=== PATIENT | male | born 1970 | race Caucasian/White ===

== ENCOUNTER 2019-12-17 16:20 | Inpatient (IN) ==
[2019-12-17] MEDS ORDERED: MoRPHine SULFATE 4 MG/ML 1 ML CARP\\VIAL IV PRN (16:45)
[2019-12-17] MEDS ORDERED: cefTRIAXone SODIUM 2,000 MG/70 ML BAG IV STA (16:45)
[2019-12-17] MEDS ORDERED: SODIUM CHLORIDE 0.9% 1000ML 1,000 ML IV ONE ×2 (16:45→18:00)
[2019-12-17] MEDS ORDERED: MoRPHine SULFATE 4 MG/ML 1 ML CARP\\VIAL IV STA (16:45)
[2019-12-17] MEDS ORDERED: ONDANSETRON INJ 2 MG/ML 2 ML VIAL IV STA (16:45)
[2019-12-17] MEDS ORDERED: ACETAMINOPHEN 1,000 MG/100 ML VIAL IV STA (16:45)
--- NOTE | 2019-12-17 16:52 | Emergency Department Note ---
Impression & Plan Sepsis, Meningitis, Fever, Tachycardia, Headache ED Provider Note NAME: LOPEZ COTTO AGE: 49 SEX: M : 1970 ARRIVES VIA: Ambulance INFORMANT: [Patient] ED PROVIDER(S): [Prince Pacheco MD] CHIEF COMPLAINT: Fever and headache HISTORY OF PRESENT ILLNESS: The patient is a 49-year-old male who has had around 4 days of fever, headache, stiff neck, muscle and joint pain. He also has had some right ear pain and eye pain. The light hurts his eyes. There has been no sore throat, no stuffy nose. Patient rates all his pain is a 9/10. Everything worsens with movement, nothing really makes things any better. Patient states that he did have coronavirus testing already as an outpatient, this returned negative. Today, he presents the ER with worsening symptoms. The patient has had meningitis in the past. He has had a craniotomy in the past. The patient states that there has been no vomiting, no diarrhea, he has not had any urinary complaints. There has been no rash. He has not any sick contacts. The patient states that any movement really makes his symptoms markedly worse. REVIEW OF SYSTEMS: See HPI for pertinent positives and negatives. A total of ten systems were reviewed and were otherwise negative. PMHx/PSHx: See Below SOCIAL HISTORY: See Below. PHYSICAL EXAM: GENERAL: Patient is in moderate distress from pain. HEENT: No acute trauma, normocephalic atraumatic, mucous membranes moist, no nasal congestion, no scleral icterus. TMs clear bilaterally. NECK: No stridor, no adenopathy, he does have findings consistent with m eningismus, trachea is midline. LUNGS: Clear to auscultation bilaterally, no wheeze, no rhonchi, breath sounds equal. HEART: Without murmurs gallops or rubs, mildly tachycardic, regular rhythm. ABDOMEN: Soft, nontender, bowel sounds positive, no hernias, no peritonitis. EXTREMITIES: No cyanosis or edema, full range of motion of all the joints without pain or difficulty, no signs for acute trauma. NEUROLOGIC: Oriented x 3, no acute motor or sensory deficits, no focal weakness. SKIN: No rash, no jaundice, no diaphoresis. DIFFERENTIAL DIAGNOSIS: Sepsis, UTI, pneumonia, metabolic, electrolyte abnormalities, meningitis, abscess, coronavirus, cardiac sources, intracerebral event, toxicologic, neurologic, as well as other pathologies. EMERGENCY DEPARTMENT COURSE/PROCEDURES: ECG: Indication was tachycardia. The EKG shows a sinus tachycardia with a rate of 118. The QTc is 448. There is no ST elevation. No PVCs. Continuous Cardiac Monitoring: An order was placed for continuous cardiac monitoring. The monitor shows a rate of 108 with sinus tachycardia. Lumbar puncture: Risks and benefits of the procedure were discussed. Patient was placed seated on the stretcher. Lumbar landmarks were identified. Betadine was used for prep. Sterile drapes were applied. Using sterile technique, lidocaine was used to anesthetize the lumbar area. Using sterile technique, I was able to access the spinal canal. There were no complications. Fluid was collected for analysis and sent to the lab. Patient tolerated the procedure well. Critical Care Note: I have personally spent greater than 55 minutes of critical care time in the direct management of this patient. This includes bedside care, interpretation of diagnostic studies, and testing, discussion with consultants, patient, and family members, and other required patient management activities. This 55 minutes is in excess of all separately billable procedures. MEDICAL DECISION MAKING: There is a significant leukocytosis at 23,000. This is certainly consistent with infection. No worrisome anemia. There was a normal platelet count. INR was slightly high at 1.2. The cause for this elevation is unclear. There was a slightly low potassium at 3.1, no kidney failure. Lactic acid level was quite high at 3.2. Procalcitonin level was also elevated. The lactic acid and procalcitonin levels suggest sepsis/infection. No concerning liver enzyme elevation. Brain CT showed no acute bleed or mass-effect, there were findings consistent with his prior craniotomy. Chest film did not show pneumonia or CHF. Influenza testing returned negative. CSF protein was elevated at 151. CSF glucose was normal. CSF gram stain showed white blood cells but no organisms. CSF culture is pending. CSF Biofire testing returned negative. CSF cell count showed a significant number of WBCs consistent with potential meningitis. A lumbar puncture was performed, the fluid was cloudy and appeared consistent with infection. The lumbar puncture was done in the seated position so a pressure test could not be run, however, based on the force of the outpouring- fluid during the LP, I do suspect a significantly elevated CSF pressure. The patient was aggressively managed given his findings. He was given IV ceftriaxone upfront. He was given IV Decadron. He was given IV saline, IV morphine and IV Zofran. After the LP, he received IV vancomycin and IV acyclovir. He received IV lactated Ringer's. The patient is feeling improved. He still has a headache though. He is still tachycardic but overall the patient feels better than when he arrived. He is technically septic. He appears to have meningitis. Hospitalization is clearly warranted. I spoke to the patient and case management. The on-call hospitalist was consulted. Past Med/Surg History Medical History (Updated 12/17/19 @ 19:25 by Prince Pacheco MD) Meningitis Surgical History H/O craniotomy Social History Preferred Language: Lao Communication Ability: Effective Battery Technician Required: No Beliefs That Will Affect Care: None Current Living Situation: Alone Other Information That Helps Us Care for You: No Feels Safe at Home: Yes Safety Concerns: Feels Safe At This Time Smoking Status: Former smoker Do You Dip or Chew Tobacco: No ; Second Hand Exposure: No ; Hx Alcohol Use: Yes Alcohol type: hard liquor Hx Substance Use: No Allergies Allergies Allergy/AdvReac Type Severity Reaction Status Date / Time tomato Allergy Severe Hives Verified 12/17/19 16:58 naproxen Allergy Unknown Unknown Verified 12/17/19 16:59 Home Meds Home Medications Medication Instructions Recorded Confirmed acetaminophen 1,000 mg PO Q6H PRN 12/17/19 12/17/19 anastrozole 1 mg PO DAILY 12/17/19 12/17/19 testosterone cypionate 200 mg IM UD 12/17/19 12/17/19 Results & Data (ED) Vital Signs Vital Signs - 24 hr 12/17/19 16:24 12/17/19 16:27 12/17/19 16:29 Temperature 38.0 C H Temperature Source Oral Pulse Rate 123 H 126 H 120 H Pulse Rate from SpO2 Sensor 121 H 124 H Respiratory Rate 19 18 22 Blood Pressure 151/79 H 151/79 H Blood Pressure Mean 105 103 Pulse Oximetry 100 99 100 Oxygen Delivery Method Room Air Sepsis Recent Fever Within 48 Hours Yes Sepsis Action Taken by Nursing No Action Required 12/17/19 16:30 12/17/19 16:31 12/17/19 16:40 Temperature Temperature Source Pulse Rate 120 H 122 H 120 H Pulse Rate from SpO2 Sensor 121 H 122 H 122 H Respiratory Rate 20 15 23 Blood Pressure 164/91 H Blood Pressure Mean 128 Pulse Oximetry 100 99 98 Oxygen Delivery Method Sepsis Recent Fever Within 48 Hours Sepsis Action Taken by Nursing 12/17/19 16:50 12/17/19 17:00 12/17/19 17:10 Temperature Temperature Source Pulse Rate 127 H 110 H 121 H Pulse Rate from SpO2 Sensor 128 H Respiratory Rate 16 15 20 Blood Pressure Blood Pressure Mean Pulse Oximetry 98 Oxygen Delivery Method Sepsis Recent Fever Within 48 Hours Sepsis Action Taken by Nursing 12/17/19 17:20 12/17/19 17:30 12/17/19 17:32 Temperature Temperature Source Pulse Rate 116 H 122 H 120 H Pulse Rate from SpO2 Sensor Respiratory Rate 20 32 H 24 Blood Pressure 183/101 H Blood Pressure Mean 122 Pulse Oximetry Oxygen Delivery Method Sepsis Recent Fever Within 48 Hours Sepsis Action Taken by Nursing 12/17/19 17:49 12/17/19 17:50 12/17/19 18:00 Temperature Temperature Source Pulse Rate 113 H 116 H Pulse Rate from SpO2 Sensor 121 H 113 H 118 H Respiratory Rate 20 22 Blood Pressure 205/111 H Blood Pressure Mean 135 Pulse Oximetry 89 L 90 91 Oxygen Delivery Method Sepsis Recent Fever Within 48 Hours Sepsis Action Taken by Nursing 12/17/19 18:01 12/17/19 18:10 12/17/19 18:20 Temperature Temperature Source Pulse Rate 125 H 127 H 123 H Pulse Rate from SpO2 Sensor 126 H 128 H 123 H Respiratory Rate 17 17 21 Blood Pressure Blood Pressure Mean Pulse Oximetry 92 94 90 Oxygen Delivery Method Sepsis Recent Fever Within 48 Hours Sepsis Action Taken by Nursing 12/17/19 18:30 12/17/19 18:31 12/17/19 18:40 Temperature Temperature Source Pulse Rate 122 H 128 H 127 H Pulse Rate from SpO2 Sensor 123 H 128 H 126 H Respiratory Rate 16 18 25 H Blood Pressure 136/81 Blood Pressure Mean 97 Pulse Oximetry 94 97 94 Oxygen Delivery Method Sepsis Recent Fever Within 48 Hours Sepsis Action Taken by Nursing 12/17/19 18:50 12/17/19 19:00 12/17/19 19:01 Temperature Temperature Source Pulse Rate 127 H 106 H 108 H Pulse Rate from SpO2 Sensor 127 H 108 H 108 H Respiratory Rate 16 14 14 Blood Pressure 148/82 H Blood Pressure Mean 117 Pulse Oximetry 96 91 Oxygen Delivery Method Sepsis Recent Fever Within 48 Hours Sepsis Action Taken by Nursing 12/17/19 19:10 12/17/19 19:20 12/17/19 19:30 Temperature Temperature Source Pulse Rate 107 H 112 H 104 H Pulse Rate from SpO2 Sensor 107 H 112 H 105 H Respiratory Rate 10 L 24 13 Blood Pressure 144/88 H Blood Pressure Mean 106 Pulse Oximetry 91 98 91 Oxygen Delivery Method Sepsis Recent Fever Within 48 Hours Sepsis Action Taken by Nursing 12/17/19 19:31 12/17/19 19:40 12/17/19 19:50 Temperature Temperature Source Pulse Rate 106 H 110 H 113 H Pulse Rate from SpO2 Sensor 106 H 110 H 113 H Respiratory Rate 17 18 24 Blood Pressure Blood Pressure Mean Pulse Oximetry 96 97 95 Oxygen Delivery Method Sepsis Recent Fever Within 48 Hours Sepsis Action Taken by Nursing 12/17/19 20:00 12/17/19 20:01 12/17/19 20:10 Temperature Temperature Source Pulse Rate 117 H 120 H 113 H Pulse Rate from SpO2 Sensor 118 H 119 H 114 H Respiratory Rate 18 20 26 H Blood Pressure 135/77 Blood Pressure Mean 97 Pulse Oximetry 90 94 92 Oxygen Delivery Method Sepsis Recent Fever Within 48 Hours Sepsis Action Taken by Nursing 12/17/19 20:20 12/17/19 20:30 12/17/19 20:31 Temperature Temperature Source Pulse Rate 108 H 103 H 108 H Pulse Rate from SpO2 Sensor 109 H 104 H 107 H Respiratory Rate 28 H 19 21 Blood Pressure 151/92 H Blood Pressure Mean 112 Pulse Oximetry 98 98 94 Oxygen Delivery Method Sepsis Recent Fever Within 48 Hours Sepsis Action Taken by Retirement Medications Current Medication List: was personally reviewed by me Laboratory Data Attestation: I reviewed the patient's lab results. Result diagrams: 12/17/19 17:04 12/17/19 18:02 Lab Results 12/17/19 12/17/19 12/17/19 Range/Units 17:04 17:04 17:04 WBC 23.73 H (4.8-10.8) K/uL RBC 6.27 H (4.7-6.1) M/uL Hgb 13.6 L (14.0-18.0) g/dL Hct 40.4 L (42-52) % MCV 64.4 L (80-100) fL MCH 21.7 L (25-34) pg MCHC 33.7 (32-36) g/dL RDW Std Deviation 37.8 (36.4-46.3) fL RDW Coeff of Isaac 16.9 H (11.5-14.5) % Plt Count 297 (130-400) K/uL Immature Gran % (Auto) 0.4 % Neut % (Auto) 89.5 % Lymph % (Auto) 2.7 % Tompkins % (Auto) 7.3 % Eos % (Auto) 0.0 % Baso % (Auto) 0.1 % Immature Gran # (Auto) 0.10 H (0.00-0.02) K/uL Neut # (Auto) 21.22 H (1.4-6.5) K/uL Lymph # (Auto) 0.65 L (1.2-3.4) K/uL Tompkins # (Auto) 1.74 H (0.11-0.59) K/uL Eos # (Auto) 0.00 (0-0.5) K/uL Baso # (Auto) 0.02 (0-0.2) K/uL Absolute Nucleated RBC 0.09 H (0-0) K/uL Nucleated RBC % (auto) 0.4 % Polychromasia 1+ Microcytosis Present PT Cancelled INR Cancelled APTT Cancelled PTT Ratio Cancelled Sodium 137 (136-145) mmol/L Potassium (3.5-5.1) mmol/L Chloride 103 (98-107) mmol/L Carbon Dioxide 23 (21-32) mmol/L Anion Gap 11.0 (3-11) BUN 12 (7-18) mg/dl Creatinine 1.13 (0.6-1.4) mg/dl Est Cr Clr Drug Dosing 72.1 ml/min Est GFR ( Amer) 88.6 Est GFR (Non-Af Amer) 76.4 BUN/Creatinine Ratio 10.7 (10-20) Glucose 144 H (70-99) mg/dl Lactate (0.4-2.0) mmol/L Calcium 9.7 (8.5-10.1) mg/dl Phosphorus Magnesium (1.8-2.4) mg/dl Total Bilirubin 2.1 H (0.2-1) mg/dl AST (15-37) U/L ALT 33 (12-78) U/L Alkaline Phosphatase 72 (45-117) U/L Total Protein 8.5 H (6.4-8.2) gm/dl Albumin 4.1 (3.4-5.0) gm/dl Globulin 4.4 H (2.5-4.0) gm/dl Albumin/Globulin Ratio 0.9 (0.9-2) Procalcitonin (0-0.5) ng/ml CSF Appearance CSF Color Xanthrochromic CSF WBC (0-5) /uL CSF RBC (0-) /uL CSF Cell Count Tube # CSF Mononuclear WBCs % % CSF Polynuclear WBCs % % CSF Chemistry Tube # CSF Glucose (40-70) mg/dl CSF Total Protein (15-45) mg/dl CSF C.neoform/gat PCR (NotDetected) CSF CMV DNA (PCR) (NotDetected) CSF Enterovirus (PCR) (NotDetected) CSF E. coli K1 (PCR) (NotDetected) CSF H. influenzae (PCR) (NotDetected) CSF HSV I (PCR) (NotDetected) CSF HSV II (PCR) (NotDetected) CSF HHV 6 (PCR) (NotDetected) CSF L.monocytogenes PCR (NotDetected) CSF N. meningitidis PCR (NotDetected) CSF Parechovirus (PCR) (NotDetected) CSF S. agalactiae (PCR) (NotDetected) CSF S. pneumoniae (PCR) (NotDetected) CSF VZV DNA (PCR) (NotDetected) Influenza Type A (PCR) (Neg) Influenza Type B (PCR) (Neg) 12/17/19 12/17/19 12/17/19 Range/Units 17:25 18:00 18:02 WBC (4.8-10.8) K/uL RBC (4.7-6.1) M/uL Hgb (14.0-18.0) g/dL Hct (42-52) % MCV (80-100) fL MCH (25-34) pg MCHC (32-36) g/dL RDW Std Deviation (36.4-46.3) fL RDW Coeff of Isaac (11.5-14.5) % Plt Count (130-400) K/uL Immature Gran % (Auto) % Neut % (Auto) % Lymph % (Auto) % Tompkins % (Auto) % Eos % (Auto) % Baso % (Auto) % Immature Gran # (Auto) (0.00-0.02) K/uL Neut # (Auto) (1.4-6.5) K/uL Lymph # (Auto) (1.2-3.4) K/uL Tompkins # (Auto) (0.11-0.59) K/uL Eos # (Auto) (0-0.5) K/uL Baso # (Auto) (0-0.2) K/uL Absolute Nucleated RBC (0-0) K/uL Nucleated RBC % (auto) % Polychromasia Microcytosis PT INR APTT PTT Ratio Sodium (136-145) mmol/L Potassium (3.5-5.1) mmol/L Chloride (98-107) mmol/L Carbon Dioxide (21-32) mmol/L Anion Gap (3-11) BUN (7-18) mg/dl Creatinine (0.6-1.4) mg/dl Est Cr Clr Drug Dosing ml/min Est GFR ( Amer) Est GFR (Non-Af Amer) BUN/Creatinine Ratio (10-20) Glucose (70-99) mg/dl Lactate 3.2 H* (0.4-2.0) mmol/L Calcium (8.5-10.1) mg/dl Phosphorus Magnesium (1.8-2.4) mg/dl Total Bilirubin (0.2-1) mg/dl AST (15-37) U/L ALT (12-78) U/L Alkaline Phosphatase (45-117) U/L Total Protein (6.4-8.2) gm/dl Albumin (3.4-5.0) gm/dl Globulin (2.5-4.0) gm/dl Albumin/Globulin Ratio (0.9-2) Procalcitonin 1.84 H (0-0.5) ng/ml CSF Appearance CSF Color Xanthrochromic CSF WBC (0-5) /uL CSF RBC (0-) /uL CSF Cell Count Tube # CSF Mononuclear WBCs % % CSF Polynuclear WBCs % % CSF Chemistry Tube # CSF Glucose (40-70) mg/dl CSF Total Protein (15-45) mg/dl CSF C.neoform/gat PCR (NotDetected) CSF CMV DNA (PCR) (NotDetected) CSF Enterovirus (PCR) (NotDetected) CSF E. coli K1 (PCR) (NotDetected) CSF H. influenzae (PCR) (NotDetected) CSF HSV I (PCR) (NotDetected) CSF HSV II (PCR) (NotDetected) CSF HHV 6 (PCR) (NotDetected) CSF L.monocytogenes PCR (NotDetected) CSF N. meningitidis PCR (NotDetected) CSF Parechovirus (PCR) (NotDetected) CSF S. agalactiae (PCR) (NotDetected) CSF S. pneumoniae (PCR) (NotDetected) CSF VZV DNA (PCR) (NotDetected) Influenza Type A (PCR) Neg for Influ A (Neg) Influenza Type B (PCR) Neg for Influ B (Neg) 12/17/19 12/17/19 12/17/19 Range/Units 18:02 18:02 18:55 WBC (4.8-10.8) K/uL RBC (4.7-6.1) M/uL Hgb (14.0-18.0) g/dL Hct (42-52) % MCV (80-100) fL MCH (25-34) pg MCHC (32-36) g/dL RDW Std Deviation (36.4-46.3) fL RDW Coeff of Isaac (11.5-14.5) % Plt Count (130-400) K/uL Immature Gran % (Auto) % Neut % (Auto) % Lymph % (Auto) % Tompkins % (Auto) % Eos % (Auto) % Baso % (Auto) % Immature Gran # (Auto) (0.00-0.02) K/uL Neut # (Auto) (1.4-6.5) K/uL Lymph # (Auto) (1.2-3.4) K/uL Tompkins # (Auto) (0.11-0.59) K/uL Eos # (Auto) (0-0.5) K/uL Baso # (Auto) (0-0.2) K/uL Absolute Nucleated RBC (0-0) K/uL Nucleated RBC % (auto) % Polychromasia Microcytosis PT 12.9 H INR 1.2 H APTT 35.1 H PTT Ratio 1.3 Sodium (136-145) mmol/L Potassium 3.1 L (3.5-5.1) mmol/L Chloride (98-107) mmol/L Carbon Dioxide (21-32) mmol/L Anion Gap (3-11) BUN (7-18) mg/dl Creatinine (0.6-1.4) mg/dl Est Cr Clr Drug Dosing ml/min Est GFR ( Amer) Est GFR (Non-Af Amer) BUN/Creatinine Ratio (10-20) Glucose (70-99) mg/dl Lactate (0.4-2.0) mmol/L Calcium (8.5-10.1) mg/dl Phosphorus Cancelled Magnesium 2.0 (1.8-2.4) mg/dl Total Bilirubin (0.2-1) mg/dl AST 14 L (15-37) U/L ALT (12-78) U/L Alkaline Phosphatase (45-117) U/L Total Protein (6.4-8.2) gm/dl Albumin (3.4-5.0) gm/dl Globulin (2.5-4.0) gm/dl Albumin/Globulin Ratio (0.9-2) Procalcitonin (0-0.5) ng/ml CSF Appearance CSF Color Xanthrochromic CSF WBC (0-5) /uL CSF RBC (0-) /uL CSF Cell Count Tube # CSF Mononuclear WBCs % % CSF Polynuclear WBCs % % CSF Chemistry Tube # 1 CSF Glucose 54 (40-70) mg/dl CSF Total Protein 151.4 H (15-45) mg/dl CSF C.neoform/gat PCR (NotDetected) CSF CMV DNA (PCR) (NotDetected) CSF Enterovirus (PCR) (NotDetected) CSF E. coli K1 (PCR) (NotDetected) CSF H. influenzae (PCR) (NotDetected) CSF HSV I (PCR) (NotDetected) CSF HSV II (PCR) (NotDetected) CSF HHV 6 (PCR) (NotDetected) CSF L.monocytogenes PCR (NotDetected) CSF N. meningitidis PCR (NotDetected) CSF Parechovirus (PCR) (NotDetected) CSF S. agalactiae (PCR) (NotDetected) CSF S. pneumoniae (PCR) (NotDetected) CSF VZV DNA (PCR) (NotDetected) Influenza Type A (PCR) (Neg) Influenza Type B (PCR) (Neg) 12/17/19 12/17/19 12/17/19 Range/Units 18:55 18:55 19:38 WBC (4.8-10.8) K/uL RBC (4.7-6.1) M/uL Hgb (14.0-18.0) g/dL Hct (42-52) % MCV (80-100) fL MCH (25-34) pg MCHC (32-36) g/dL RDW Std Deviation (36.4-46.3) fL RDW Coeff of Isaac (11.5-14.5) % Plt Count (130-400) K/uL Immature Gran % (Auto) % Neut % (Auto) % Lymph % (Auto) % Tompkins % (Auto) % Eos % (Auto) % Baso % (Auto) % Immature Gran # (Auto) (0.00-0.02) K/uL Neut # (Auto) (1.4-6.5) K/uL Lymph # (Auto) (1.2-3.4) K/uL Tompkins # (Auto) (0.11-0.59) K/uL Eos # (Auto) (0-0.5) K/uL Baso # (Auto) (0-0.2) K/uL Absolute Nucleated RBC (0-0) K/uL Nucleated RBC % (auto) % Polychromasia Microcytosis PT INR APTT PTT Ratio Sodium (136-145) mmol/L Potassium (3.5-5.1) mmol/L Chloride (98-107) mmol/L Carbon Dioxide (21-32) mmol/L Anion Gap (3-11) BUN (7-18) mg/dl Creatinine (0.6-1.4) mg/dl Est Cr Clr Drug Dosing ml/min Est GFR ( Amer) Est GFR (Non-Af Amer) BUN/Creatinine Ratio (10-20) Glucose (70-99) mg/dl Lactate 1.6 (0.4-2.0) mmol/L Calcium (8.5-10.1) mg/dl Phosphorus Magnesium (1.8-2.4) mg/dl Total Bilirubin (0.2-1) mg/dl AST (15-37) U/L ALT (12-78) U/L Alkaline Phosphatase (45-117) U/L Total Protein (6.4-8.2) gm/dl Albumin (3.4-5.0) gm/dl Globulin (2.5-4.0) gm/dl Albumin/Globulin Ratio (0.9-2) Procalcitonin (0-0.5) ng/ml CSF Appearance Cloudy CSF Color Colorless Xanthrochromic Xanthochromic CSF WBC 5819 H* (0-5) /uL CSF RBC 120 (0-) /uL CSF Cell Count Tube # 3 CSF Mononuclear WBCs % 23.0 % CSF Polynuclear WBCs % 77.0 % CSF Chemistry Tube # Cancelled CSF Glucose Cancelled (40-70) mg/dl CSF Total Protein (15-45) mg/dl CSF C.neoform/gat PCR Not Detected (NotDetected) CSF CMV DNA (PCR) Not Detected (NotDetected) CSF Enterovirus (PCR) Not Detected (NotDetected) CSF E. coli K1 (PCR) Not Detected (NotDetected) CSF H. influenzae (PCR) Not Detected (NotDetected) CSF HSV I (PCR) Not Detected (NotDetected) CSF HSV II (PCR) Not Detected (NotDetected) CSF HHV 6 (PCR) Not Detected (NotDetected) CSF L.monocytogenes PCR Not Detected (NotDetected) CSF N. meningitidis PCR Not Detected (NotDetected) CSF Parechovirus (PCR) Not Detected (NotDetected) CSF S. agalactiae (PCR) Not Detected (NotDetected) CSF S. pneumoniae (PCR) Not Detected (NotDetected) CSF VZV DNA (PCR) Not Detected (NotDetected) Influenza Type A (PCR) (Neg) Influenza Type B (PCR) (Neg) Administered Medications Acetaminophen (Tylenol) 650 mg PO Q4H PRN PRN Reason: Pain or Fever Stop: 01/16/20 21:54 Last Admin: 12/17/19 23:22 Dose: 650 mg Documented by: [id number] Lactated Ringer's (Lr) 1,000 mls @ 100 mls/hr IV .Q10H ONE Stop: 12/18/19 08:14 Last Admin: 12/17/19 22:15 Dose: 100 mls/hr Documented by: [id number] Dexamethasone 10 mg/ Syringe 2.5 mls @ 1 mls/min IV Q6H KATE Stop: 01/17/20 00:00 Last Admin: 12/17/19 23:24 Dose: 1 mls/min Documented by: [id number] Cefepime HCl 2,000 mg/ Syringe 20 mls @ 5 mls/min IV Q8 KATE; Protocol Stop: 12/27/19 21:59 Last Admin: 12/17/19 23:23 Dose: 5 mls/min Documented by: [id number] Insulin Aspart (Novolog Flexpen) 0 units SC ACHS KATE Stop: 01/16/20 20:59 Last Admin: 12/17/19 22:24 Dose: Not Given Documented by: [id number] Cosigned by: [id number] Insulin Glargine (Lantus Solostar Pen) 5 units SC BID KATE Stop: 01/16/20 20:59 Last Admin: 12/17/19 22:25 Dose: 5 units Documented by: [id number] Cosigned by: [id number] Discontinued Medications Dexamethasone Sodium Phosphate (Decadron Pf) 10 mg IV NOW STA Stop: 12/17/19 18:18 Last Admin: 12/17/19 18:26 Dose: 10 mg Documented by: [id number] Sodium Chloride (Nss 1000ml) 1,000 mls @ 999 mls/hr IV .Q1H1M ONE Stop: 12/17/19 17:45 Last Infusion: 12/17/19 19:39 Dose: 0 mls/hr Documented by: [id number] Admin: 12/17/19 17:30 Dose: 999 mls/hr Documented by: [id number] Ceftriaxone Sodium (Rocephin) 2,000 mg in 70 mls @ 140 mls/hr IV NOW STA Stop: 12/17/19 17:14 Last Infusion: 12/17/19 18:30 Dose: 0 mls/hr Documented by: [id number] Admin: 12/17/19 17:30 Dose: 140 mls/hr Documented by: [id number] Acetaminophen (Ofirmev) 1,000 mg in 100 mls @ 400 mls/hr IV NOW STA Stop: 12/17/19 16:59 Last Infusion: 12/17/19 18:30 Dose: 0 mls/hr Documented by: [id number] Admin: 12/17/19 17:30 Dose: 400 mls/hr Documented by: [id number] Sodium Chloride (Nss 1000ml) 1,000 mls @ 999 mls/hr IV .Q1H1M ONE Stop: 12/17/19 19:00 Last Infusion: 12/17/19 20:57 Dose: 0 mls/hr Documented by: [id number] Admin: 12/17/19 19:07 Dose: 999 mls/hr Documented by: [id number] Vancomycin HCl 1,750 mg/ (Sodium Chloride) 535 mls @ 200 mls/hr IV NOW STA Stop: 12/17/19 21:39 Last Infusion: 12/17/19 22:09 Dose: 0 mls/hr Documented by: [id number] Admin: 12/17/19 19:28 Dose: 200 mls/hr Documented by: [id number] Acyclovir Sodium 650 mg/ (Dextrose) 113 mls @ 100 mls/hr IV NOW STA Stop: 12/17/19 20:08 Last Infusion: 12/17/19 20:57 Dose: 0 mls/hr Documented by: [id number] Admin: 12/17/19 19:28 Dose: 100 mls/hr Documented by: [id number] Lactated Ringer's (Lr) 1,000 mls @ 999 mls/hr IV .Q1H1M STA Stop: 12/17/19 20:46 Last Infusion: 12/17/19 21:48 Dose: 0 mls/hr Documented by: [id number] Admin: 12/17/19 20:47 Dose: 999 mls/hr Documented by: [id number] Lidocaine HCl (Buffered Lidocaine 1%) Confirm Administered Dose 20 ml INFIL .STK-MED ONE Stop: 12/17/19 18:32 Last Admin: 12/17/19 18:59 Dose: 20 ml Documented by: [id number] Morphine Sulfate (Morphine Sulfate) 4 mg IV NOW STA Stop: 12/17/19 16:46 Last Admin: 12/17/19 17:30 Dose: 4 mg Documented by: [id number] Morphine Sulfate (Morphine Sulfate) 4 mg IV Q30M PRN PRN Reason: Pain Stop: 12/31/19 16:44 Last Admin: 12/17/19 18:26 Dose: 4 mg Documented by: [id number] Ondansetron HCl (Zofran) 4 mg IV NOW STA Stop: 12/17/19 16:46 Last Admin: 12/17/19 17:30 Dose: 4 mg Documented by: [id number] Potassium Chloride (Klor-Con M20) 40 meq PO NOW STA Stop: 12/17/19 19:58 Last Admin: 12/17/19 20:47 Dose: 40 meq Documented by: [id number] Imaging Data Radiologist's Impression: XR chest 1V portable CLINICAL HISTORY: SEPSIS COMPARISON STUDY: No previous studies for comparison. FINDINGS: The bones soft tissues and hemidiaphragms are normal. The ca rdiomediastinal silhouette is normal. The lungs are clear. The pulmonary vasculature is normal. IMPRESSION: Negative chest. CT head/brain wo con CT DOSE: 614.27 mGy.cm HISTORY: headache, fever TECHNIQUE: Multiaxial CT images of the head were performed without the use of intravenous contrast. A dose lowering technique was utilized adhering to the principles of ALARA. Comparison: None. Findings: The paranasal sinuses and mastoid air cells are clear. The calvarium and skull base are intact. There has been a prior right temporal craniotomy. The ventricles and sulci are within normal limits. There is no mass, hematoma, midline shift, or acute infarct. Impression: No acute intracranial abnormality. Postoperative change consistent with a right temporal craniotomy. Blood Pressure Blood Pressure Findings: Elevated blood pressure Blood Pressure Disposition: further management by hospitalist Discharge Plan Visit Data *Final* Discharge Date/Time: 12/17/19 21:26 Chief Complaint: Illness Stated Complaint: NECK & LOWER BACK PAIN, FEVER, CONGESTION ED Provider: Prince Pacheco Discharge Problem: Sepsis, Meningitis, Fever, Tachycardia, Headache Patient Disposition: Admitted As Inpatient Condition: Fair Discharge Instructions Interventions: ED Discharge Assessment Last Done: 12/17/19 21:26 Discharge Problem: Sepsis Qualifiers: Sepsis type: sepsis due to unspecified organism Sepsis acute organ dysfunction status: without acute organ dysfunction Qualified Code(s): A41.9 - Sepsis, unspecified organism Fever Qualifiers: Fever type: unspecified Qualified Code(s): R50.9 - Fever, unspecified Headache Qualifiers: Headache type: unspecified Headache chronicity pattern: acute headache Intractability: intractable Qualified Code(s): R51 - Headache
[2019-12-17 17:19] LABS: Hematocrit (blood only) 40.4 % (42-52); Hemoglobin 13.6 g/dL (14.0-18.0); Mean Corpuscular Hemoglobin 21.7 pg (25-34); Mean Corpuscular Hgb Conc 33.7 g/dL (32-36); Mean Corpuscular Volume 64.4 fL (80-100); Nucleated RBC # (auto) 0.09 K/uL (0-0); Nucleated RBC % (auto) 0.4 %; Platelet Count 297 K/uL (130-400); RDW Coefficient of Variation 16.9 % (11.5-14.5); RDW Standard Deviation 37.8 fL (36.4-46.3); Red Blood Count 6.27 M/uL (4.7-6.1); White Blood Count 23.73 K/uL (4.8-10.8)
--- NOTE | 2019-12-17 17:25 | XRay Report ---
XR chest 1V portable CLINICAL HISTORY: SEPSIS COMPARISON STUDY: No previous studies for comparison. FINDINGS: The bones soft tissues and hemidiaphragms are normal. The cardiomediastinal silhouette is n ormal. The lungs are clear. The pulmonary vasculature is normal. IMPRESSION: Negative chest. ACT 112: Negative or not required by law. The above report was generated using voice recognition software. It may contain grammatical, syntax or spelling errors. Electronically signed by: Espinoza Martinez M.D. 12/17/2019 5:24 PM
[2019-12-17 17:40] LABS: Albumin Globulin Ratio 0.9 (0.9-2); Albumin Level 4.1 gm/dl (3.4-5.0); BUN Creatinine Ratio 10.7 (10-20); Bilirubin,Total 2.1 mg/dl (0.2-1); Calcium 9.7 mg/dl (8.5-10.1); Creatinine Clr Calc Pharmacy 72.1 ml/min; Est GFR (African American) 88.6; Est GFR (Non-African American) 76.4; Globulin 4.4 gm/dl (2.5-4.0); Total Protein 8.5 gm/dl (6.4-8.2)
--- NOTE | 2019-12-17 17:48 | CT Scan Report ---
CT head/brain wo con CT DOSE: 614.27 mGy.cm HISTORY: headache, fever TECHNIQUE: Multiaxial CT images of the head were performed without the use of intravenous contrast. A dose lowering technique was utilized adhering to the principles of ALARA. Comparison: None. Findings: The paranasal sinuses and mastoid air cells are clear. The calvarium and skull base are int act. There has been a prior right temporal craniotomy. The ventricles and sulci are within normal bojorquez its. There is no mass, hematoma, midline shift, or acute infarct. Impression: No acute intracranial abnormality. Postoperative change consistent with a right temporal craniotomy. ACT 112: Negative or not required by law. The above report was generated using voice recognition software. It may contain grammatical, syntax or spelling errors. Electronically signed by: Espinoza Martinez M.D. 12/17/2019 5:47 PM
[2019-12-17 17:51] LABS: Basophils # (auto) 0.02 K/uL (0-0.2); Basophils % (auto) 0.1 %; Immature Granulocytes % (auto) 0.4 %; Lymphocytes # (auto) 0.65 K/uL (1.2-3.4); Lymphocytes % (auto) 2.7 %; Microcytosis Present; Monocytes # (auto) 1.74 K/uL (0.11-0.59); Monocytes % (auto) 7.3 %; Neutrophils # (auto) 21.22 K/uL (1.4-6.5); Neutrophils % (auto) 89.5 %; Polychromasia 1+
[2019-12-17] MEDS ORDERED: DEXAMETHASONE **PF** INJ 10 MG/ML VIAL IV STA (18:17)
[2019-12-17 18:26] LABS: INR 1.2 (0.9-1.1); Partial Thromboplastin Ratio 1.3; Partial Thromboplastin Time 35.1 Seconds (21.0-31.0); Prothrombin Time 12.9 Seconds (9.0-12.0)
[2019-12-17 18:30] LABS: Potassium 3.1 mmol/L (3.5-5.1)
[2019-12-17] MEDS ORDERED: XYLOCAINE 1%/SOD BICARB 20 ML VIAL INFIL ONE (18:31)
[2019-12-17 18:50] LABS: Influenza A virus by PCR Neg for Influ A (Neg); Influenza B virus by PCR Neg for Influ B (Neg)
[2019-12-17] MEDS ORDERED: VANCOMYCIN HCL 1,750 MG in SODIUM CHLORIDE 0.9% 500 ML IV STA (18:59)
[2019-12-17] MEDS ORDERED: ACYCLOVIR SOD 650 MG in DEXTROSE 5% 100 ML IV STA (19:01)
[2019-12-17 19:26] LABS: Total Protein CSF 151.4 mg/dl (15-45)
[2019-12-17] MEDS ORDERED: LACTATED RINGER'S 1,000 ML IV STA (19:46)
[2019-12-17] MEDS ORDERED: POTASSIUM CHLORIDE 20 MEQ TABCR PO STA (19:57)
[2019-12-17 20:06] LABS: Appearance CSF Cloudy; CSF Count Tube # 3
[2019-12-17 20:07] LABS: CSF Xanthrochromic Xanthochromic
[2019-12-17 20:08] LABS: Color CSF Colorless
[2019-12-17 20:09] LABS: Red Blood Cell CSF (A) 120 /uL (0-); Red Blood Cell CSF (B) 140 /uL (0-)
[2019-12-17 20:23] LABS: White Blood Cell CSF (A) 5819 /uL (0-5)
--- NOTE | 2019-12-17 20:36 | History & Physical Report ---
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 Check hemoglobin A1c Basal insulin, ISS BG goal [id number] while receiving Decadron until pneumococcal meningitis ruled out DVT prophylaxis per Lovenox subcu Full code Text document was generated using Reeher voice recognition software. It may contain grammatical or spelling errors. Kindly contact undersigned for clarification of any documentation item in question. History of Present Illness Chief Complaint: Headache, fever, chills Primary Care Provider: Ever Downey MD History obtained from patient and records. 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 4 days history of fever, achy headache, stiff neck muscle and joint pain symptoms. Achy right ear ache symptoms without drainage and photophobia symptoms. Patient denies sinusitis, sore throat symptoms. No chest pain, no cough symptoms. No known sick contacts, hunting activities, or tick bites. Outpatient COVID test was negative. Patient consulted ER for worsening symptoms. Patient received vancomycin, ceftriaxone, acyclovir, Decadron for DIAMOND SETTER infection. Medical History as above Recent outpatient HIV test from May 2019 was negative. Surgical History : Craniotomy, female to male top surgery (mastectomy/chest c ontouring), hysterectomy, ovarian cyst removal Family History : Hypertension Personal/Social history : Past tobacco abuse, occasional EtOH intake, currently a postgraduate student Allergies Allergy/AdvReac Type Severity Reaction Status Date / Time tomato Allergy Severe Hives Verified 12/17/19 16:58 naproxen Allergy Unknown Unknown Verified 12/17/19 16:59 Home Medications Home Medications Medication Instructions Recorded Confirmed Type acetaminophen 1,000 mg PO Q6H PRN 12/17/19 12/17/19 History anastrozole 1 mg PO DAILY 12/17/19 12/17/19 History testosterone cypionate 200 mg IM UD 12/17/19 12/17/19 History Past Med/Surg History Medical History (Updated 12/18/19 @ 00:15 by Shivam Culver MD) Meningitis Surgical History H/O craniotomy Social History Preferred Language: Bulgarian Communication Ability: Effective 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 Beliefs That Will Affect Care: None Current Living Situation: Alone Other Information That Helps Us Care for You: No Feels Safe at Home: Yes Safety Concerns: Feels Safe At This Time Smoking Status: Former smoker Do You Dip or Chew Tobacco: No ; Second Hand Exposure: No ; Hx Alcohol Use: Yes Alcohol type: hard liquor Hx Substance Use: No Review of Systems Review of Systems: As per HPI, all 10 systems reviewed, all other ROS negative Physical Exam Physical Exam: GENERAL: Slightly uncomfortable, pleasant, no respiratory distress SKIN: Normal color, warm HEENT: [place] palpebral conjunctivae, no ptosis, dry buccal mucosa AD/: Patent EAC, no discharge, intact TM NECK : Limited flexion, minimal cervical tenderness CHEST : Decreased breath sounds, no tenderness HEART : Tachycardic , no obvious murmurs ABDOMEN: Some distention, nontender EXTREMITIES : No LE swelling/tenderness, no other conspicuous deformities noted NEUROLOGIC : Coherent, no facial asymmetry, no other gross focality Results & Data Results & Data ([facility]) Vital Signs (Past 12 Hours) Vital Signs Temp Pulse Resp BP Pulse Ox 12/17/19 19:01 108 H 14 12/17/19 19:00 106 H 14 148/82 H 91 12/17/19 18:50 127 H 16 96 12/17/19 18:40 127 H 25 H 94 12/17/19 18:31 128 H 18 97 12/17/19 18:30 122 H 16 136/81 94 12/17/19 18:20 123 H 21 90 12/17/19 18:10 127 H 17 94 12/17/19 18:01 125 H 17 92 12/17/19 18:00 116 H 22 205/111 H 91 12/17/19 17:50 113 H 20 90 12/17/19 17:49 89 L 12/17/19 17:32 120 H 24 183/101 H 12/17/19 17:30 122 H 32 H 12/17/19 17:20 116 H 20 12/17/19 17:10 121 H 20 12/17/19 17:00 110 H 15 12/17/19 16:50 127 H 16 98 12/17/19 16:40 120 H 23 98 12/17/19 16:31 122 H 15 99 12/17/19 16:30 120 H 20 164/91 H 100 12/17/19 16:29 38.0 C H 120 H 22 151/79 H 100 12/17/19 16:27 126 H 18 99 12/17/19 16:24 123 H 19 151/79 H 100 Laboratory Results Laboratory Results WBC 23.73 K/uL (4.8-10.8) H 12/17/19 17:04 RBC 6.27 M/uL (4.7-6.1) H 12/17/19 17:04 Hgb 13.6 g/dL (14.0-18.0) L 12/17/19 17:04 Hct 40.4 % (42-52) L 12/17/19 17:04 MCV 64.4 fL (80-100) L 12/17/19 17:04 MCH 21.7 pg (25-34) L 12/17/19 17:04 MCHC 33.7 g/dL (32-36) 12/17/19 17:04 RDW Std Deviation 37.8 fL (36.4-46.3) 12/17/19 17:04 RDW Coeff of Isaac 16.9 % (11.5-14.5) H 12/17/19 17:04 Plt Count 297 K/uL (130-400) 12/17/19 17:04 Immature Gran % (Auto) 0.4 % 12/17/19 17:04 Neut % (Auto) 89.5 % 12/17/19 17:04 Lymph % (Auto) 2.7 % 12/17/19 17:04 Andrews % (Auto) 7.3 % 12/17/19 17:04 Eos % (Auto) 0.0 % 12/17/19 17:04 Baso % (Auto) 0.1 % 12/17/19 17:04 Immature Gran # (Auto) 0.10 K/uL (0.00-0.02) H 12/17/19 17:04 Neut # (Auto) 21.22 K/uL (1.4-6.5) H 12/17/19 17:04 Lymph # (Auto) 0.65 K/uL (1.2-3.4) L 12/17/19 17:04 Andrews # (Auto) 1.74 K/uL (0.11-0.59) H 12/17/19 17:04 Eos # (Auto) 0.00 K/uL (0-0.5) 12/17/19 17:04 Baso # (Auto) 0.02 K/uL (0-0.2) 12/17/19 17:04 Absolute Nucleated RBC 0.09 K/uL (0-0) H 12/17/19 17:04 Nucleated RBC % (auto) 0.4 % 12/17/19 17:04 Polychromasia 1+ 12/17/19 17:04 Microcytosis Present 12/17/19 17:04 PT 12.9 Seconds (9.0-12.0) H 12/17/19 18:02 INR 1.2 (0.9-1.1) H 12/17/19 18:02 APTT 35.1 Seconds (21.0-31.0) H 12/17/19 18:02 PTT Ratio 1.3 12/17/19 18:02 Sodium 137 mmol/L (136-145) 12/17/19 17:04 Potassium 3.1 mmol/L (3.5-5.1) L 12/17/19 18:02 Chloride 103 mmol/L (98-107) 12/17/19 17:04 Carbon Dioxide 23 mmol/L (21-32) 12/17/19 17:04 Anion Gap 11.0 (3-11) 12/17/19 17:04 BUN 12 mg/dl (7-18) 12/17/19 17:04 Creatinine 1.13 mg/dl (0.6-1.4) 12/17/19 17:04 Est Cr Clr Drug Dosing 72.1 ml/min 12/17/19 17:04 Est GFR ( Amer) 88.6 12/17/19 17:04 Est GFR (Non-Af Amer) 76.4 12/17/19 17:04 BUN/Creatinine Ratio 10.7 (10-20) 12/17/19 17:04 Glucose 144 mg/dl (70-99) H 12/17/19 17:04 Lactate 1.6 mmol/L (0.4-2.0) 12/17/19 19:38 Calcium 9.7 mg/dl (8.5-10.1) 12/17/19 17:04 Phosphorus Cancelled 12/17/19 18:02 Magnesium 2.0 mg/dl (1.8-2.4) 12/17/19 18:02 Total Bilirubin 2.1 mg/dl (0.2-1) H 12/17/19 17:04 AST 14 U/L (15-37) L 12/17/19 18:02 ALT 33 U/L (12-78) 12/17/19 17:04 Alkaline Phosphatase 72 U/L (45-117) 12/17/19 17:04 Total Protein 8.5 gm/dl (6.4-8.2) H 12/17/19 17:04 Albumin 4.1 gm/dl (3.4-5.0) 12/17/19 17:04 Globulin 4.4 gm/dl (2.5-4.0) H 12/17/19 17:04 Albumin/Globulin Ratio 0.9 (0.9-2) 12/17/19 17:04 Procalcitonin 1.84 ng/ml (0-0.5) H 12/17/19 18:02 CSF Appearance Cloudy 12/17/19 18:55 CSF Color Colorless 12/17/19 18:55 Xanthrochromic Xanthochromic 12/17/19 18:55 CSF WBC 5819 /uL (0-5) H* 12/17/19 18:55 CSF RBC 120 /uL (0-) 12/17/19 18:55 CSF Cell Count Tube # 3 12/17/19 18:55 CSF Mononuclear WBCs % 23.0 % 12/17/19 18:55 CSF Polynuclear WBCs % 77.0 % 12/17/19 18:55 CSF Chemistry Tube # 1 12/17/19 18:55 CSF Chemistry Tube # Cancelled 12/17/19 18:55 CSF Glucose 54 mg/dl (40-70) 12/17/19 18:55 CSF Glucose Cancelled 12/17/19 18:55 CSF Total Protein 151.4 mg/dl (15-45) H 12/17/19 18:55 Influenza Type A (PCR) Neg for Influ A (Neg) 12/17/19 18:00 Influenza Type B (PCR) Neg for Influ B (Neg) 12/17/19 18:[address] head: No acute intracranial abnormality. Postoperative change consistent with a right temporal craniotomy. Chest x-ray : Negative EKG as per my interpretation :Rate 120, sinus tachycardia, normal axis, LAE, no ischemia
[2019-12-17 20:45] LABS: Cryptococcus neoformans/ga PCR Not Detected (NotDetected); Cytomegalovirus PCR Not Detected (NotDetected); Enterovirus PCR Not Detected (NotDetected); Escherichia coli K1 PCR Not Detected (NotDetected); Haemophilius influenzae PCR Not Detected (NotDetected); Herpes Simplex Virus 1 PCR Not Detected (NotDetected); Herpes Simplex Virus 2 PCR Not Detected (NotDetected); Human Herpes Virus 6 PCR Not Detected (NotDetected); Human Parechovirus PCR Not Detected (NotDetected); Listeria monocytogenes PCR Not Detected (NotDetected); Neisseria meningitidis PCR Not Detected (NotDetected); Streptococcus agalactiae PCR Not Detected (NotDetected); Streptococcus pneumoniae PCR Not Detected (NotDetected); Varicella Zoster Virus PCR Not Detected (NotDetected)
[2019-12-17] MEDS ORDERED: CARBOHYDRATES FOR HYPOGLYCEMIA PO PRN (20:47)
[2019-12-17] MEDS ORDERED: GLUCOSE 10 TABS/TUBE PO PRN (20:47)
[2019-12-17] MEDS ORDERED: GLUCAGON FOR INJ 1 MG VIAL SQ PRN (20:47)
[2019-12-17] MEDS ORDERED: DEXTROSE 50% 50 ML SYRINGE IV PRN (20:47)
[2019-12-17] MEDS ORDERED: GLUCOSE 40% GEL 15 GM TUBE PO PRN (20:47)
[2019-12-17] MEDS ORDERED: PROMETHAZINE HCL 12.5 MG in SODIUM CHLORIDE 0.9% 50 ML IV PRN (21:55)
[2019-12-17] MEDS ORDERED: LORazepam 0.25 MG/0.5 ML VIAL IV PRN (21:55)
[2019-12-17] MEDS ORDERED: CONSULT PHARMACY STA (21:55)
[2019-12-17] MEDS ORDERED: VANCOMYCIN CONSULT ACTIVE PRN (22:00)
[2019-12-17] MEDS ORDERED: CEFEPIME CONSULT ACTIVE PRN (22:01)
[2019-12-17] MEDS ORDERED: LACTATED RINGER'S 1,000 ML IV ONE (22:15)
[2019-12-17] MEDS: INSULIN ASPART 100 UNITS/ML 3 ML PEN SC SCH (22:24)
[2019-12-17] MEDS: INSULIN GLARGINE SOLOSTAR 100 UNITS/ML 3 ML PEN SC SCH (22:25)
--- NOTE | 2019-12-17 22:32 | Pharmacy Report ---
Pharmacy Abx Dose Short Note - Date of Service December 17, 2019 - Assessment & Plan Assessment 49 year old M ordered empiric vancomycin and cefepime IV for treatment of sepsis, meningitis * ED notes report h/o of craniotomy and meningitis Plan Vancomycin * Loading dose: 1750 mg IV (27 mg/kg) x 1 in ED * Maintenance dose: 1250 mg (18.8 mg/kg) IV q12h * Goal trough level: 15 - 20 mcg/mL * Trough level ordered for 12/17 @ 1930. Note, level drawn prior to steady state due to aggressive dosing for suspected source of meningitis. Cefepime * 2000 mg IV q8h Pharmacy will continue to follow and will adjust dose/frequency as necessary. Thank you.
[2019-12-17] MEDS: ACETAMINOPHEN 325 MG TAB PO PRN (23:22)
[2019-12-17] MEDS: CEFEPIME 2,000 MG in SYRINGE 7.5 ML IV SCH (23:23)
[2019-12-17] MEDS: dexAMETHasone 10 MG in SYRINGE 0 ML IV SCH (23:24)
[2019-12-18] MEDS: MoRPHine SULFATE 4 MG/ML 1 ML CARP\\VIAL IV PRN ×2 (01:08→05:08)
[2019-12-18] MEDS: dexAMETHasone 10 MG in SYRINGE 0 ML IV SCH ×3 (05:08→17:45)
[2019-12-18] MEDS: CEFEPIME 2,000 MG in SYRINGE 7.5 ML IV SCH ×3 (05:08→22:17)
[2019-12-18 05:42] LABS: Estimated Average Glucose 91 mg/dl; Hemoglobin A1C 4.8 % (4.5-5.6)
[2019-12-18 06:08] LABS: Basophils # (auto) 0.01 K/uL (0-0.2); Basophils % (auto) 0.1 %; Hematocrit (blood only) 35.8 % (42-52); Hemoglobin 11.5 g/dL (14.0-18.0); Immature Granulocytes # (auto) 0.07 K/uL (0.00-0.02); Immature Granulocytes % (auto) 0.4 %; Lymphocytes # (auto) 0.48 K/uL (1.2-3.4); Lymphocytes % (auto) 2.9 %; Mean Corpuscular Hgb Conc 32.1 g/dL (32-36); Mean Corpuscular Volume 65.4 fL (80-100); Mean Platelet Volume 10.6 fL (7.4-10.4); Monocytes # (auto) 0.52 K/uL (0.11-0.59); Monocytes % (auto) 3.1 %; Neutrophils # (auto) 15.45 K/uL (1.4-6.5); Neutrophils % (auto) 93.5 %; Nucleated RBC # (auto) 0.06 K/uL (0-0); Nucleated RBC % (auto) 0.4 %; Platelet Count 240 K/uL (130-400); RDW Coefficient of Variation 17.3 % (11.5-14.5); Red Blood Count 5.47 M/uL (4.7-6.1); White Blood Count 16.53 K/uL (4.8-10.8)
[2019-12-18 06:26] LABS: Microcytosis Present; Polychromasia 1+
[2019-12-18] MEDS ORDERED: MAGNESIUM SULFATE / D5W 1 GM/100 ML BAG IV ONE (06:39)
[2019-12-18] MEDS ORDERED: POTASSIUM CHLORIDE 20 MEQ TABCR PO STA (06:39)
[2019-12-18 06:41] LABS: BUN Creatinine Ratio 19.4 (10-20); Calcium 8.7 mg/dl (8.5-10.1); Creatinine Clr Calc Pharmacy 104.8 ml/min; Est GFR (African American) 125.7; Est GFR (Non-African American) 108.5; Potassium 3.8 mmol/L (3.5-5.1)
[2019-12-18 07:10] LABS: Thyroid Stimulating Hormone 0.202 uIu/ml (0.300-4.500)
[2019-12-18 07:22] LABS: T4 Free Thyroxine 0.98 ng/dl (0.8-1.6)
[2019-12-18] MEDS: ANASTROZOLE 1 MG TAB PO SCH (07:57)
[2019-12-18] MEDS: OXYCODONE HCL IR 5 MG TAB (IMMEDIATE RELEASE) PO PRN ×3 (07:57→20:34)
[2019-12-18] MEDS ORDERED: VANCOMYCIN HCL 1,250 MG in SODIUM CHLORIDE 0.9% 250 ML IV SCH (08:00)
[2019-12-18] MEDS: INSULIN GLARGINE SOLOSTAR 100 UNITS/ML 3 ML PEN SC SCH ×2 (08:44→20:34)
[2019-12-18] MEDS: INSULIN ASPART 100 UNITS/ML 3 ML PEN SC SCH ×4 (08:45→20:34)
[2019-12-18] MEDS ORDERED: ENOXAPARIN INJ 30 MG/0.3 ML SYR SQ SCH (09:00)
--- NOTE | 2019-12-18 09:39 | Hospitalist Progress Note ---
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 Check hemoglobin A1c Basal insulin, ISS BG goal [id number] while receiving Decadron until pneumococcal meningitis ruled out DVT prophylaxis per Lovenox subcu Full code labs checked ROS-+ Headache, No Visual Changes, No Nausea, No Vomiting, No Fever, No Chills, No Neck Pain or Stiffness, No Chest Pain, No Palpitations, No SOB, No VELASQUEZ, No Cough, No Sputum, No Wheezing, No Abdominal Pain, No Diarrhea, No Hematemesis, No Hemoptysis, No Unexpected Weight Loss, No Flank pain, No Melena, No Hematochezia, No Frequency, No Urgency, No Burning, No Hematuria, No Rashes, No Diaphoresis. Appetite is Poor Physical Exam Gen-AAO x 3, NAD, febrile in last 24 Hrs Head-NCAT, EOMI, PERRLA, Anicteric Sclera, No Posterior Pharyngeal Erythema Neck-Supple, No JVD, No Thyromegaly, No Masses, No LAD, No Bruits Lungs-Clear to Auscultation Bilaterally, No Rales, No Rhonchi, No Wheezing, No Crepitus Chest-No S4, +S1, +S2, No S3, No Murmurs, No Rubs, No Gallops, No Ectopy Abdomen-Soft, Bowel Sounds Present, Non Tender, Non Distended, No Hepatomegaly, No Splenomegaly, No Palpable Masses, No Rebound, No Rigidity, No Guarding Musculoskeletal-Full Range of Motion Bilaterally, No CVAT Extremities-No Cyanosis, No Clubbing, No Edema Nuero-Cranial Nerves II-XII grossly intact, Motor WNL, DTRs WNL, Strength WNL, Non Focal Psych-Normal Mood Admission and Anticipated Discharge Date Admission Date: December 17, 2019 Results & Data Results & Data ([place]) Vital Signs (Past 12 Hours) Vital Signs Temp Pulse Pulse Resp BP BP Pulse Ox 12/18/19 06:34 36.7 C 108 H 18 153/90 H 95 12/18/19 04:12 99 H 12/18/19 03:58 36.7 C 101 H 19 152/89 H 96 12/17/19 21:57 36.7 C 104 H 18 157/90 H 97
[2019-12-18 12:30] LABS: Appearance Urine Clear (Clear); Bacteria Urine Automated Negative (Negative); Bilirubin Urine Negative (Negative); Blood Urine Negative (Negative); Color Urine Yellow; Epithelial Cell Urine Auto 20-30 /lpf (0-5); Glucose Urine UA Negative (Negative); Ketones Urine 3+ (Negative); Leukocyte Esterase Urine Negative (Negative); Nitrite Urine Negative (Negative); Protein Urine 1+ (Negative); RBC Urine Automated 0-4 /hpf (0-4); Specific Gravity Urine 1.027 (1.000-1.030); Urobilinogen Urine Negative (Negative)
--- NOTE | 2019-12-18 13:04 | Infectious Disease Consult ---
Date of Consultation December 18, 2019 Assessment & Plan (1) Meningitis: continue abx, steroids, follow cultures. clinically improved. wbc improved. remain concerned regarding involvement of hardware due to previous surgery, would consider eval with neurosurgery to address this. History of Present Illness Attending Physician: Figueroa Emanuel DO pt admitted with DOWD and photophobia. Has h/o cranial leak in 2016 resulting in bacteiral meningitis, was hospitalized in [place] at the time and underwent treatment with IV abx and also had crainiotomy, has retained hardware. unclear of what pathogen was found or what abx he was treated with. He has done well until recently when he developed similar symptoms, dowd, fever and photophobia. Came to ER, LP revealed wbc 5819, protein 151, no glucose done, pcr negative, culture done and pending, gram stain with many polys, no organisms. He is feeling slightly better today, denies f/c. less DOWD but still with photophobia, no neck pain. tolerating abx, currently on cefepime and vanco, also on steroids. blood cultures pending. eating and drinking, no n/v/d. no cp, sob, cough. 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 wbc 23 in ER, 16 today, creat 0.7, procalcitonin 1.8. Flu swab negative. CT head negative for acute finding. He denies any h/o head trauma in 2016 or recently. He has relocated to [place] from [place]. He denies any sick contacts, he lives alone. 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 Beliefs That Will Affect Care: None Current Living Situation: Alone Other Information That Helps Us Care for You: No Feels Safe at Home: Yes Safety Concerns: Feels Safe At This Time Smoking Status: Former smoker Do You Dip or Chew Tobacco: No ; Second Hand Exposure: No ; Hx Alcohol Use: Yes Alcohol type: hard liquor Hx Substance Use: No Review of Systems Review of Systems: All systems reviewed & are unremarkable except as noted in HPI & below Physical Exam Constitutional: WD/WN, vitals as above Eyes: PERRL, conjunctivae normal, anicteric sclerae ENMT: external ear and nose normal, oropharynx normal Neck: normal visual inspection Respiratory: normal respiratory effort, lungs clear to auscultation Cardiovascular: RRR, no murmur, no edema Gastrointestinal (Abdomen): normal bowel sounds, soft, nontender, no hepatosplenomegaly Musculoskeletal: no cyanosis or clubbing, extremities motor strength 5/5 Skin: no rashes, warm and dry Psychiatric: A+Ox3, euthymic affect Results & Data ([facility]) Vital Signs (Past 12 Hours) Vital Signs Temp Pulse Pulse Resp BP BP Pulse Ox 12/18/19 11:06 36.5 C 92 H 16 150/89 H 96 12/18/19 10:30 106 H 12/18/19 06:34 36.7 C 108 H 18 153/90 H 95 12/18/19 04:12 99 H 12/18/19 03:58 36.7 C 101 H 19 152/89 H 96 Laboratory Results Microbiology 12/17/19 18:55 Cerebral Spinal Fluid Gram Stain - Final 12/17/19 18:55 Cerebral Spinal Fluid CSF Culture - Preliminary No growth to date. PG Care Time/CCT Total # of Minutes Spent Total Time Spent with Patient: Total time spent is greater than 50% in coordination of care (as documented) at patient's floor/unit and/or counseling patient: Coding Level of Care Code 67553 Inpt Consult Level 4 Diagnoses Meningitis G03.9
--- NOTE | 2019-12-18 13:13 | Electrocardiogram Report ---
Test Reason : Blood Pressure : / mmHG Vent. Rate : 118 BPM Atrial Rate : 118 BPM P-R Int : 150 ms QRS Dur : 084 ms QT Int : 320 ms P-R-T Axes : 066 059 023 degrees QTc Int : 448 ms Sinus tachycardia Possible Left atrial enlargement Borderline ECG No previous ECGs available Confirmed by Lan Shepard ([id number]) on 12/18/2019 1:13:28 PM Referred By: REFERRED SELF Confirmed By:Lan Shepard
[2019-12-18] MEDS: VANCOMYCIN HCL 1,250 MG in SODIUM CHLORIDE 0.9% 250 ML IV SCH (16:38)
[2019-12-18] MEDS ORDERED: VANCOMYCIN TROUGH ONE ×2 (19:30→23:30)
[2019-12-19] MEDS: VANCOMYCIN HCL 1,250 MG in SODIUM CHLORIDE 0.9% 250 ML IV SCH ×4 (00:25→17:26)
[2019-12-19] MEDS: dexAMETHasone 10 MG in SYRINGE 0 ML IV SCH ×4 (00:25→17:28)
[2019-12-19] MEDS: CEFEPIME 2,000 MG in SYRINGE 7.5 ML IV SCH ×3 (05:54→21:10)
[2019-12-19 06:06] LABS: Hematocrit (blood only) 32.9 % (42-52); Immature Granulocytes # (auto) 0.04 K/uL (0.00-0.02); Immature Granulocytes % (auto) 0.3 %; Lymphocytes # (auto) 0.71 K/uL (1.2-3.4); Lymphocytes % (auto) 5.1 %; Mean Corpuscular Hemoglobin 21.7 pg (25-34); Mean Corpuscular Hgb Conc 33.4 g/dL (32-36); Mean Corpuscular Volume 64.9 fL (80-100); Mean Platelet Volume 10.8 fL (7.4-10.4); Monocytes # (auto) 0.57 K/uL (0.11-0.59); Monocytes % (auto) 4.1 %; Neutrophils # (auto) 12.64 K/uL (1.4-6.5); Neutrophils % (auto) 90.5 %; Platelet Count 258 K/uL (130-400); RDW Coefficient of Variation 16.7 % (11.5-14.5); RDW Standard Deviation 38.8 fL (36.4-46.3); Red Blood Count 5.07 M/uL (4.7-6.1); White Blood Count 13.96 K/uL (4.8-10.8)
[2019-12-19 06:33] LABS: Albumin Level 2.7 gm/dl (3.4-5.0); BUN Creatinine Ratio 18.1 (10-20); Calcium 8.6 mg/dl (8.5-10.1); Creatinine Clr Calc Pharmacy 117.3 ml/min; Est GFR (African American) 131.7; Est GFR (Non-African American) 113.6; Potassium 3.7 mmol/L (3.5-5.1)
[2019-12-19 06:37] LABS: Basophilic Stippling 1+; Hypochromasia Present; Ovalocytes 1+; Polychromasia 1+; Schistocytes Occasional; Target Cells 1+; Tear Drop Cells 1+
[2019-12-19 06:39] LABS: Albumin Globulin Ratio 0.8 (0.9-2); Bilirubin,Total 0.8 mg/dl (0.2-1); Globulin 3.4 gm/dl (2.5-4.0); Total Protein 6.1 gm/dl (6.4-8.2)
--- NOTE | 2019-12-19 07:20 | Hospitalist Progress Note ---
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 Check hemoglobin A1c Basal insulin, ISS BG goal [id number] while receiving Decadron until pneumococcal meningitis ruled out DVT prophylaxis per Lovenox subcu Full code labs checked ROS-+ Headache, but improved, No Visual Changes, No Nausea, No Vomiting, No Fever, No Chills, No Neck Pain or Stiffness, No Chest Pain, No Palpitations, No SOB, No VELASQUEZ, No Cough, No Sputum, No Wheezing, No Abdominal Pain, No Diarrhea, No Hematemesis, No Hemoptysis, No Unexpected Weight Loss, No Flank pain, No Melena, No Hematochezia, No Frequency, No Urgency, No Burning, No Hematuria, No Rashes, No Diaphoresis. Appetite is Poor Physical Exam Gen-AAO x 3, NAD, febrile in last 24 Hrs Head-NCAT, EOMI, PERRLA, Anicteric Sclera, No Posterior Pharyngeal Erythema Neck-Supple, No JVD, No Thyromegaly, No Masses, No LAD, No Bruits Lungs-Clear to Auscultation Bilaterally, No Rales, No Rhonchi, No Wheezing, No Crepitus Chest-No S4, +S1, +S2, No S3, No Murmurs, No Rubs, No Gallops, No Ectopy Abdomen-Soft, Bowel Sounds Present, Non Tender, Non Distended, No Hepatomegaly, No Splenomegaly, No Palpable Masses, No Rebound, No Rigidity, No Guarding Musculoskeletal-Full Range of Motion Bilaterally, No CVAT Extremities-No Cyanosis, No Clubbing, No Edema Nuero-Cranial Nerves II-XII grossly intact, Motor WNL, DTRs WNL, Strength WNL, Non Focal Psych-Normal Mood Admission and Anticipated Discharge Date Admission Date: December 17, 2019 Results & Data Results & Data ([facility]) Vital Signs (Past 12 Hours) Vital Signs Temp Pulse Pulse Resp BP Pulse Ox 12/19/19 07:13 88 12/19/19 06:59 36.8 C 87 16 153/88 H 95 12/19/19 04:07 100 H 12/19/19 04:06 36.7 C 94 H 18 137/81 98 12/18/19 23:00 36.7 C 92 H 19 157/88 H 96
[2019-12-19] MEDS: INSULIN ASPART 100 UNITS/ML 3 ML PEN SC SCH ×4 (08:32→21:09)
[2019-12-19] MEDS: INSULIN GLARGINE SOLOSTAR 100 UNITS/ML 3 ML PEN SC SCH ×2 (08:33→21:09)
[2019-12-19] MEDS: ENOXAPARIN INJ 40 MG/0.4 ML SYR SQ SCH (08:35)
[2019-12-19] MEDS: ANASTROZOLE 1 MG TAB PO SCH (08:35)
--- NOTE | 2019-12-19 09:39 | Infectious Disease Progress Nt ---
Date of Service December 19, 2019 Assessment & Plan (1) Meningitis: continue abx, steroids, follow cultures. clinically improved. wbc improved. remain concerned regarding involvement of hardware due to previous surgery, would consider eval with neurosurgery to address this. Admission and Anticipated Discharge Date Admission Date: December 17, 2019 Subjective pt remains on emperic abx, cefepime and vanco. also on steroids. tolerating well. afebrile overnight. wbc decreased to 13, creat 0.6. Blood and CSF cultures negative to date. h/o meningitis in 2016. Results & Data ([facility]) Vital Signs (Past 12 Hours) Vital Signs Temp Pulse Pulse Resp BP Pulse Ox 12/19/19 07:13 88 12/19/19 06:59 36.8 C 87 16 153/88 H 95 12/19/19 04:07 100 H 12/19/19 04:06 36.7 C 94 H 18 137/81 98 12/18/19 23:00 36.7 C 92 H 19 157/88 H 96 Laboratory Results Microbiology 12/17/19 17:25 Blood Aerobic Blood Culture - Preliminary No growth in Aerobic bottle after 24 hours. 12/17/19 17:25 Blood Anaerobic Blood Culture - Preliminary No growth in Anaerobic bottle after 24 hours. 12/17/19 17:04 Blood Anaerobic Blood Culture - Preliminary No growth in Anaerobic bottle after 24 hours. 12/17/19 18:55 Cerebral Spinal Fluid Gram Stain - Final 12/17/19 18:55 Cerebral Spinal Fluid CSF Culture - Preliminary No growth to date. PG Care Time/CCT Total # of Minutes Spent Total Time Spent with Patient: Total time spent is greater than 50% in coordination of care (as documented) at patient's floor/unit and/or counseling patient: Coding Level of Care Code 23728 Subseq Hosp Care Lvl 1 Diagnoses Meningitis G03.9
--- NOTE | 2019-12-19 10:27 | Pharmacy Report ---
Pharmacy Abx Dose Short Note - Date of Service December 19, 2019 - Assessment & Plan Assessment 49 year old M receiving vancomycin/cefepime for possible sepsis/meningitis Day # 3 of antimicrobial therapy. Plan Vancomycin * Trough level last evening came back subtherapeutic at ~12 mcg/ml - dosing increased to 1250 mg iv q 6 hrs * Renal function remains stable at this time * CSF/Blood cultures prelim no growth, leukocytosis trending down * ID consulted and would like continuation of antibiotics due to concern for hardware involvement. Cefepime * 2 gm iv q 8 hrs - no change Pharmacy will continue to follow and will adjust dose/frequency as necessary. Thank you.
[2019-12-19] MEDS: ACETAMINOPHEN 325 MG TAB PO PRN (15:58)
[2019-12-20] MEDS: VANCOMYCIN HCL 1,250 MG in SODIUM CHLORIDE 0.9% 250 ML IV SCH ×2 (00:39→06:05)
[2019-12-20] MEDS: dexAMETHasone 10 MG in SYRINGE 0 ML IV SCH ×4 (00:39→17:40)
[2019-12-20] MEDS ORDERED: VANCOMYCIN TROUGH ONE (05:30)
[2019-12-20 06:01] LABS: Hematocrit (blood only) 32.1 % (42-52); Hemoglobin 10.7 g/dL (14.0-18.0); Mean Corpuscular Hemoglobin 21.3 pg (25-34); Mean Corpuscular Hgb Conc 33.3 g/dL (32-36); Mean Corpuscular Volume 63.9 fL (80-100); Platelet Count 306 K/uL (130-400); RDW Coefficient of Variation 16.2 % (11.5-14.5); RDW Standard Deviation 37.5 fL (36.4-46.3); Red Blood Count 5.02 M/uL (4.7-6.1); White Blood Count 9.82 K/uL (4.8-10.8)
[2019-12-20] MEDS: CEFEPIME 2,000 MG in SYRINGE 7.5 ML IV SCH ×3 (06:06→21:14)
[2019-12-20 06:33] LABS: Calcium 8.1 mg/dl (8.5-10.1); Creatinine Clr Calc Pharmacy 107.6 ml/min; Est GFR (African American) 127.1; Est GFR (Non-African American) 109.7; Potassium 3.5 mmol/L (3.5-5.1)
--- NOTE | 2019-12-20 06:33 | Hospitalist Progress Note ---
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) on maintenance hormonal Rx Hyperglycemia Medical/Surg Follow cultures, Vancomycin, Cefepime for now WBCs trending down Decadron until pneumococcal meningitis ruled out ID consult RE recurrent meningitis Basal insulin, ISS BG goal [id number] while receiving Decadron until pneumococcal meningitis ruled out DVT prophylaxis per Lovenox subcu Add Flonase Full code labs checked ROS-+Headache, but improving, No Visual Changes, No Nausea, No Vomiting, No Fever, No Chills, No Neck Pain or Stiffness, No Chest Pain, No Palpitations, No SOB, No VELASQUEZ, No Cough, No Sputum, No Wheezing, No Abdominal Pain, No Diarrhea, No Hematemesis, No Hemoptysis, No Unexpected Weight Loss, No Flank pain, No Melena, No Hematochezia, No Frequency, No Urgency, No Burning, No Hematuria, No Rashes, No Diaphoresis. Appetite is Poor Physical Exam Gen-AAO x 3, NAD, febrile in last 24 Hrs Head-NCAT, EOMI, PERRLA, Anicteric Sclera, No Posterior Pharyngeal Erythema Neck-Supple, No JVD, No Thyromegaly, No Masses, No LAD, No Bruits Lungs-Clear to Auscultation Bilaterally, No Rales, No Rhonchi, No Wheezing, No Crepitus Chest-No S4, +S1, +S2, No S3, No Murmurs, No Rubs, No Gallops, No Ectopy Abdomen-Soft, Bowel Sounds Present, Non Tender, Non Distended, No Hepatomegaly, No Splenomegaly, No Palpable Masses, No Rebound, No Rigidity, No Guarding Musculoskeletal-Full Range of Motion Bilaterally, No CVAT Extremities-No Cyanosis, No Clubbing, No Edema Nuero-Cranial Nerves II-XII grossly intact, Motor WNL, DTRs WNL, Strength WNL, Non Focal Psych-Normal Mood Admission and Anticipated Discharge Date Admission Date: December 17, 2019 Anticipated date of discharge: 12/23/19 Results & Data Results & Data ([facility]) Vital Signs (Past 12 Hours) Vital Signs Temp Pulse Resp BP Pulse Ox 12/20/19 03:15 36.7 C 75 19 146/78 H 93 12/19/19 23:32 36.6 C 72 18 155/97 H 95 12/19/19 19:00 36.7 C 78 18 161/92 H 95
[2019-12-20] MEDS: INSULIN GLARGINE SOLOSTAR 100 UNITS/ML 3 ML PEN SC SCH ×2 (08:22→21:15)
[2019-12-20] MEDS: INSULIN ASPART 100 UNITS/ML 3 ML PEN SC SCH ×4 (08:22→21:16)
[2019-12-20] MEDS: ANASTROZOLE 1 MG TAB PO SCH (08:29)
[2019-12-20] MEDS: ENOXAPARIN INJ 40 MG/0.4 ML SYR SQ SCH (08:29)
[2019-12-20] MEDS: FLUTICASONE PROPIONATE NA SPR 16 GM BTL SCH (08:30)
[2019-12-20] MEDS: OXYCODONE HCL IR 5 MG TAB (IMMEDIATE RELEASE) PO PRN ×3 (08:34→21:24)
--- NOTE | 2019-12-20 09:23 | Infectious Disease Progress Nt ---
Date of Service December 20, 2019 Assessment & Plan (1) Meningitis: continue abx, follow cultures, csf culture negative and final, blood cultures negative to date.. clinically improved. wbc improved. remain concerned regarding involvement of hardware due to previous surgery, although culture negative, with h/o meningitis and resultant craniotomy in 2016 and elevated wbc >5000 on LP, would suggest continued courrse of emperic abx - vanco and cefepime x 14 days. would suggest he follow with neurosugery post d/c (no neurosurgery here) to address need for any additional intervention. Admission and Anticipated Discharge Date Admission Date: December 17, 2019 Subjective pt remains on cefepime and vanco, tolertaing well. afebrile. wbc decreased to 9.8. creat 0.7. Blood cultures negative to date, CSF culture negative and final, no growth. Results & Data ([facility]) Vital Signs (Past 12 Hours) Vital Signs Temp Pulse Resp BP Pulse Ox 12/20/19 07:15 36.8 C 65 16 149/79 H 94 12/20/19 03:15 36.7 C 75 19 146/78 H 93 12/19/19 23:32 36.6 C 72 18 155/97 H 95 Laboratory Results Microbiology 12/17/19 17:04 Blood Aerobic Blood Culture - Preliminary No growth in Aerobic bottle after 48 hours. 12/17/19 17:04 Blood Anaerobic Blood Culture - Preliminary No growth in Anaerobic bottle after 48 hours. 12/17/19 17:25 Blood Aerobic Blood Culture - Preliminary No growth in Aerobic bottle after 48 hours. 12/17/19 17:25 Blood Anaerobic Blood Culture - Preliminary No growth in Anaerobic bottle after 48 hours. 12/17/19 18:55 Cerebral Spinal Fluid Gram Stain - Final 12/17/19 18:55 Cerebral Spinal Fluid CSF Culture - Final No growth PG Care Time/CCT Total # of Minutes Spent Total Time Spent with Patient: Total time spent is greater than 50% in coordination of care (as documented) at patient's floor/unit and/or counseling patient: Coding Level of Care Code 54798 Subseq Hosp Care Lvl 1 Diagnoses Meningitis G03.9
--- NOTE | 2019-12-20 13:34 | Pharmacy Report ---
Pharmacy Abx Dose Short Note - Date of Service December 20, 2019 - Assessment & Plan Assessment 49 year old M receiving vancomycin/cefepime for possible sepsis/meningitis Day # 4 of antimicrobial therapy. Plan Vancomycin * Trough level came back supratherapeutic at ~26 mcg/ml (goal ~20 mcg/ml for meningitis tx) * Dose this AM already given - will adjust to vancomycin 1000 mg iv q 8 hrs (anticipate patient needing [id number] mg q 8 hrs). Due to higher trough level will resume with lower conservative dose of vancomycin this evening * Will time dosing for tonight when estimated level ~15 mcg/ml * Will plan to obtain a trough prior to the 1400 dose on 12/20 to ensure ther apeutic Pharmacy will continue to follow and will adjust dose/frequency as necessary. Thank you.
[2019-12-20] MEDS ORDERED: VANCOMYCIN HCL 1,250 MG in SODIUM CHLORIDE 0.9% 250 ML IV SCH (16:00)
[2019-12-20] MEDS: VANCOMYCIN HCL 1,000 MG in SODIUM CHLORIDE 0.9% 250 ML IV SCH (21:14)
[2019-12-21] MEDS: dexAMETHasone 10 MG in SYRINGE 0 ML IV SCH ×2 (00:27→06:01)
[2019-12-21] MEDS: CEFEPIME 2,000 MG in SYRINGE 7.5 ML IV SCH (06:01)
[2019-12-21] MEDS: VANCOMYCIN HCL 1,000 MG in SODIUM CHLORIDE 0.9% 250 ML IV SCH (06:01)
[2019-12-21] MEDS: OXYCODONE HCL IR 5 MG TAB (IMMEDIATE RELEASE) PO PRN (06:15)
--- NOTE | 2019-12-21 07:06 | Discharge Summary ---
Date of Service December 21, 2019 Admission HPI Per Admitting Provider History obtained from patient and records. 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 4 days history of fever, achy headache, stiff neck muscle and joint pain symptoms. Achy right ear ache symptoms without drainage and photophobia symptoms. Patient denies sinusitis, sore throat symptoms. No chest pain, no cough symptoms. No known sick contacts, hunting activities, or tick bites. Outpatient COVID test was negative. Patient consulted ER for worsening symptoms. Patient received vancomycin, ceftriaxone, acyclovir, Decadron for DOPE SPRAYER infection. Medical History as above Recent outpatient HIV test from May 2019 was negative. Surgical History : Craniotomy, female to male top surgery (mastectomy/chest contouring), hysterectomy, ovarian cyst removal Family History : Hypertension Personal/Social history : Past tobacco abuse, occasional EtOH intake, currently a postgraduate student Admission Exam Per Admitting Provider GENERAL: Slightly uncomfortable, pleasant, no respiratory distress SKIN: Normal color, warm HEENT: [place] palpebral conjunctivae, no ptosis, dry buccal mucosa AD/: Patent EAC, no discharge, intact TM NECK : Limited flexion, minimal cervical tenderness CHEST : Decreased breath sounds, no tenderness HEART : Tachycardic , no obvious murmurs ABDOMEN: Some distention, nontender EXTREMITIES : No LE swelling/tenderness, no other conspicuous deformities noted NEUROLOGIC : Coherent, no facial asymmetry, no other gross focality Principal Diagnosis Sepsis Meningitis Possible CSF leak Discharge Exam ROS-+ Headache, No Visual Changes, No Nausea, No Vomiting, No Fever, No Chills, No Neck Pain or Stiffness, No Chest Pain, No Palpitations, No SOB, No VELASQUEZ, No Cough, No Sputum, No Wheezing, No Abdominal Pain, No Diarrhea, No Hematemesis, No Hemoptysis, No Unexpected Weight Loss, No Flank pain, No Melena, No Hematochezia, No Frequency, No Urgency, No Burning, No Hematuria, No Rashes, No Diaphoresis. Appetite is Normal Physical Exam Gen-AAO x 3, NAD, Afebrile Head-NCAT, EOMI, PERRLA, Anicteric Sclera, No Posterior Pharyngeal Erythema Neck-Supple, No JVD, No Thyromegaly, No Masses, No LAD, No Bruits Lungs-Clear to Auscultation Bilaterally, No Rales, No Rhonchi, No Wheezing, No Crepitus Chest-No S4, +S1, +S2, No S3, No Murmurs, No Rubs, No Gallops, No Ectopy Abdomen-Soft, Bowel Sounds Present, Non Tender, Non Distended, No Hepatomegaly, No Splenomegaly, No Palpable Masses, No Rebound, No Rigidity, No Guarding Musculoskeletal-Full Range of Motion Bilaterally, No CVAT Extremities-No Cyanosis, No Clubbing, No Edema Nuero-Cranial Nerves II-XII grossly intact, Motor WNL, DTRs WNL, Strength WNL, Non Focal Psych-Normal Mood Discharge Data Allergies Allergy/AdvReac Type Severity Reaction Status Date / Time tomato Allergy Severe Hives Verified 12/17/19 16:58 naproxen Allergy Unknown Unknown Verified 12/17/19 16:59 Consultations 12/17/19 20:30 ED Decision to Admit Stat 12/17/19 21:55 Consult Infectious Diseases Routine 12/18/19 00:04 Consult Health Information Management Routine Ordered Studies 12/17/19 16:45 CT head/brain wo con Stat Current Diagnoses Sepsis, unspecified organism (12/17/19) Meningitis, unspecified (12/17/19) Severe sepsis without septic shock (12/17/19) Allergies tomato Allergy (Severe, Verified 12/17/19 16:58) Hives naproxen Allergy (Unknown, Verified 12/17/19 16:59) Unknown Height/Weight/Isolation Height 5 ft 5 in Weight 68.3 kg Isolation Type Droplet Precautions,Contact Precautions Chemistry 12/20/19 05:28 Sodium 143 Potassium 3.5 Chloride 111 H Carbon Dioxide 26 Anion Gap 6.0 BUN 22 H D Creatinine 0.73 Glucose 129 H Microbiology 12/17/19 17:04 Blood Aerobic Blood Culture - Preliminary No growth in Aerobic bottle after 48 hours. 12/17/19 17:04 Blood Anaerobic Blood Culture - Preliminary No growth in Anaerobic bottle after 48 hours. 12/17/19 17:25 Blood Aerobic Blood Culture - Preliminary No growth in Aerobic bottle after 48 hours. 12/17/19 17:25 Blood Anaerobic Blood Culture - Preliminary No growth in Anaerobic bottle after 48 hours. 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) on maintenance hormonal Rx Hyperglycemia Medical/Surg Vancomycin, Cefepime for now WBCs are now normal Decadron until pneumococcal meningitis ruled out ID on case RE recurrent meningitis, recommends NSY eval sec to hardware Basal insulin, ISS BG goal [id number] while receiving Decadron until pneumococcal meningitis ruled out DVT prophylaxis per Lovenox subcu Flonase Full code Total Time Total Time Spent Total Time Spent (In Minutes): 45 mins Total Time Includes: Examination of the Patient, Discharge Planning, Medication Reconciliation and Communication With Other Providers Discharge Plan Discharge Items Patient Disposition: Transfer Acute Care Hospital Reason For Visit: sepsis Discharge Diagnosis: Sepsis Meningitis Condition on Discharge: Fair Activity: Resume your previous activity Lifting: None Bathing: No limitations Exercise/Sports: None Driving/Machine Use: No limitations Weightbearing: Full weightbearing Non-emergency contact: Specialist Call non-emergency contact if: you have any medication questions Follow-up/Referrals: Ever Downey MD [Primary Care Provider] - Diet: Carb Consistent or DM2 Addtl Attending Provider Instructions: Follow up with Neurosurgery Pending Studies at Discharge: No Stand-Alone Forms: My [facility] Skilled Items Patient informed of condition?: Yes DNR: No Discharge Level of Care: Other Communicable Disease: Yes Discharge Prognosis: Improving Lines: Peripheral IV Urinary Catheter: No Medications and DC Order Prescriptions: New cefepime 2 gram Recon Soln 2 g Not Applicable UD PRN (Reason: Meningitis) Qty: 1 RF: 0 enoxaparin 40 mg/0.4 mL Syringe 40 mg subcut QAM Qty: 0.4 RF: 0 acetaminophen [Mapap (acetaminophen)] 325 mg Tablet 650 mg PO Q4H PRN (Reason: fever or pain) Qty: 1 RF: 0 morphine 4 mg/mL Syringe 4 mg IV Q4H PRN (Reason: pain) Qty: 1 RF: 0 oxycodone 5 mg Tablet 5 mg PO Q4H PRN (Reason: pain) Qty: 1 RF: 0 fluticasone propionate 50 mcg/actuation [place],Suspension 2 spray NA DAILY Qty: 1 RF: 0 Lantus Solostar U-100 Insulin 100 unit/mL (3 mL) Insulin Pen 5 unit SC BID Qty: 3 RF: 0 Vancomycin Consult Active [Consult] 1 g N/A UD PRN (Reason: memingitis) Qty: 1 RF: 0 Continued anastrozole 1 mg tablet 1 mg PO DAILY RF: 0 testosterone cypionate 200 mg/mL oil 200 mg IM UD RF: 0 Discontinued acetaminophen 500 mg Tablet 1,000 mg PO Q6H PRN (Reason: Pain) RF: 0 Discharge Orders: Discharge Order (Routine); Ordered 12/21/19 Ordered By: Figueroa Emanuel Admission Data Admit Date/Time: 12/17/19 20:37 Attending Provider: Figueroa Emanuel Admit Provider: Shivam Culver Primary Care Provider: Ever Downey Other Providers: Shivam Culver ; Caroline South
[2019-12-21 08:06] LABS: Hematocrit (blood only) 36.7 % (42-52); Hemoglobin 12.1 g/dL (14.0-18.0); Mean Corpuscular Hemoglobin 21.1 pg (25-34); Mean Corpuscular Volume 63.9 fL (80-100); Mean Platelet Volume 10.5 fL (7.4-10.4); Nucleated RBC # (auto) 0.24 K/uL (0-0); Nucleated RBC % (auto) 2.2 %; Platelet Count 356 K/uL (130-400); RDW Coefficient of Variation 15.9 % (11.5-14.5); RDW Standard Deviation 36.1 fL (36.4-46.3); Red Blood Count 5.74 M/uL (4.7-6.1); White Blood Count 10.91 K/uL (4.8-10.8)
[2019-12-21 08:25] LABS: BUN Creatinine Ratio 28.1 (10-20); Calcium 8.6 mg/dl (8.5-10.1); Creatinine Clr Calc Pharmacy 107.6 ml/min; Est GFR (African American) 127.1; Est GFR (Non-African American) 109.7; Potassium 3.5 mmol/L (3.5-5.1)
[2019-12-21] MEDS: FLUTICASONE PROPIONATE NA SPR 16 GM BTL SCH (08:44)
[2019-12-21] MEDS: ANASTROZOLE 1 MG TAB PO SCH (08:44)
[2019-12-21] MEDS: ENOXAPARIN INJ 40 MG/0.4 ML SYR SQ SCH (08:44)
[2019-12-21] MEDS: INSULIN GLARGINE SOLOSTAR 100 UNITS/ML 3 ML PEN SC SCH (08:45)
[2019-12-21] MEDS: INSULIN ASPART 100 UNITS/ML 3 ML PEN SC SCH (08:45)
[2019-12-21] MEDS ORDERED: VANCOMYCIN TROUGH ONE (13:30)
--- NOTE | 2019-12-25 13:21 | Coding Query ---
CODING QUERY To promote full compliance with coding requirements relating to patient care, provider participation is requested in all cases of instrument and electrical technician uncertainty. Please assist us with the question(s) below: Coding Question(s): There is documentation of Sepsis secondary to recurrent bacterial meningitis with documentation of, "hx intracranial surgery-He had a CSF leak from Otitis that caused a meningitis in 2016, Subsequent craniotomy and hardware by Neurosurgery in [place]" and documentation of, "ID on case RE recurrent meningitis, recommends NSY eval sec to hardware" on the Discharge Summary. ID documents, "remain concerned regarding involvement of hardware due to previous surgery". Please clarify below, in your clinical opinion. ( ) Sepsis, secondary to recurrent bacterial meningitis, Not due to Infected hardware from previous surgery/craniotomy ( ) Sepsis, secondary to recurrent bacterial meningitis, Likely due to Infected hardware from previous surgery/craniotomy ( X ) Sepsis, secondary to bacterial meningitis: Please Specify-Unable to determine if cause was from intracranial hardware ( ) Other: Please Specify Physician's Response(s): Thank you Gabbie Zarco Principal Diagnosis: "that condition established after study, to be chiefly responsible for occasioning the admission of the patient to the hospital for care." Co-Existing Principal Diagnosis: "when two or more diagnoses equally meet the criteria for principal diagnosis as determined by the circumstances of admission, diagnostic work up, and/or therapy provided, and the Alphabetic Index, Tabular List, or another coding guideline does not provide sequencing direction, any one of the diagnoses may be sequenced first." "When the physician has documented what appears to be a current diagnosis in the body of the record, but has not included the diagnosis in the final diagnostic statement, the physician should be asked whether the diagnosis should be added." (Source Coding Clinic 2 QTR90. p3-4) CHRISTIANA
== END 2019-12-21 12:50 | disposition short-term general hospital (02) | DRG 862 ==
LOC: ED 16:20 → 2N 20:37